=== PATIENT | female | born 1970 ===

== ENCOUNTER 2017-02-27 04:57 | Emergency (ER) | payer BC ==
[2017-02-27] MEDS ORDERED: Sodium Chloride 0.9% 1,000 ML IV ONE (05:09)
[2017-02-27] MEDS ORDERED: Ondansetron 4 MG/2 ML SDV IV ONE (05:10)
[2017-02-27] MEDS ORDERED: Morphine 2 MG/ML Syringe IVPUSH ONE ×2 (05:10→06:23)
--- NOTE | 2017-02-27 05:13 | EDM.PDOC ---
ED HPI GENERAL MEDICAL PROBLEM - General Chief Complaint: Flank Pain Stated Complaint: SIDE PAIN Time Seen by Provider: 02/27/17 05:11 Source of Information: Reports: Patient, Family History Limitations: Reports: No Limitations - History of Present Illness INITIAL COMMENTS - FREE TEXT/NARRATIVE: 7 days h/o right side -back pain. thought pulled muscle went to [facility] told wasn' t. not getting better. did eat tonight. now feels worse and concerned with appy. Right Flank Pain Score (Numeric/FACES): 8 - Related Data Allergies Allergy/AdvReac Type Severity Reaction Status Date / Time No Known Allergies Allergy Verified 02/27/17 05:03 Home Meds: Home Meds Acetaminophen [Tylenol] 650 mg PO Q6H PRN 02/27/17 [History] Ibuprofen [Advil] 600 mg PO Q6H PRN 02/27/17 [History] Naproxen Sodium [Aleve] 220 mg PO TID PRN 02/27/17 [History] Past Medical History - Past Health History Medical/Surgical History: Denies Medical/Surgical History Social & Family History - Tobacco Use Smoking Status *Q: Never Smoker Second Hand Smoke Exposure: No - Recreational Drug Use Recreational Drug Use: No ED ROS GENERAL - Review of Systems Review Of Systems: ROS reveals no pertinent complaints other than HPI. ED EXAM, GI/ABD - Physical Exam Exam: See Below Exam Limited By: No Limitations General Appearance: Alert, WD/WN, Mild Distress, Other (discomfort) Ears: Hearing Grossly Normal Throat/Mouth: Normal Voice, No Airway Compromise Head: Atraumatic Neck: Non-Tender, Full Range of Motion Respiratory/Chest: No Respiratory Distress Cardiovascular: Regular Rate, Rhythm GI/Abdominal Exam: Guarding, Tender, Other (right side, RLQ>). No: Distended, Rigid, Rebound Neurological: Alert, Oriented, Normal Cognition, Normal Gait, No Motor/Sensory Deficits Psychiatric: Tearful Skin Exam: Warm, Dry, Normal Color Lymphatic: No Adenopathy Course - Vital Signs Last Recorded V/S: Last Vital Signs Temp 36.6 C 02/27/17 05:00 Pulse 89 02/27/17 05:00 Resp 18 02/27/17 05:00 BP 154/71 H 02/27/17 05:00 Pulse Ox 99 02/27/17 05:00 - Orders/Labs/Meds Orders: Active Orders 24 hr Category Date Time Status Ketorolac [Toradol] Med 02/27/17 07:11 Once 15 mg IVPUSH ONETIME ONE Labs: Laboratory Tests 02/27/17 02/27/17 02/27/17 Range/Units 05:20 05:20 05:20 WBC 8.8 (5.0-10.0) 10^3/uL RBC 4.27 (4.2-5.4) 10^6/uL Hgb 13.1 (12.0-16.0) g/dL Hct 38.3 (37.0-47.0) % MCV 89.7 (80-100) fL MCH 30.7 (27.0-34.0) pg MCHC 34.2 (33.0-35.0) g/dL Plt Count 296 (150-450) 10^3/uL Neut % (Auto) 69.4 (42.2-75.2) % Lymph % (Auto) 22.1 (20.5-50.1) % [place] % (Auto) 7.3 (2-8) % Eos % (Auto) 1.0 (1.0-3.0) % Baso % (Auto) 0.2 (0.0-1.0) % Sodium 137 (135-145) mmol/L Potassium 3.5 L (3.6-5.0) mmol/L Chloride 105 (101-111) mmol/L Carbon Dioxide 22.0 (21.0-31.0) mmol/L Anion Gap 13.5 BUN 21 H (7-18) mg/dL Creatinine 0.6 (0.6-1.3) mg/dL Est Cr Clr Drug Dosing 99.02 mL/min Estimated GFR (MDRD) > 60 BUN/Creatinine Ratio 35.00 Glucose 93 (74-105) mg/dL Calcium 9.1 (8.4-10.2) mg/dl Total Bilirubin 0.5 (0.2-1.0) mg/dL AST 19 (10-42) IU/L ALT 14 (10-60) IU/L Alkaline Phosphatase 48 (42-121) IU/L Total Protein 7.2 (6.7-8.2) g/dl Albumin 4.0 (3.2-5.5) g/dl Globulin 3.2 Albumin/Globulin Ratio 1.25 Amylase 62 (28-100) U/L Lipase 37 (22-51) U/L HCG, Qual Negative Urine Color (YELLOW) Urine Appearance (CLEAR) Urine pH (5.0-9.0) Ur Specific [place] (1.005-1.030) Urine Protein (NEGATIVE) Urine Glucose (UA) (NEGATIVE) Urine Ketones (NEGATIVE) Urine Occult Blood (NEGATIVE) Urine Nitrite (NEGATIVE) Urine Bilirubin (NEGATIVE) Urine Urobilinogen (0.2-1.0) mg/dL Ur Leukocyte Esterase (NEGATIVE) Urine RBC /HPF Urine WBC (0-5/HPF) /HPF Ur Epithelial Cells /HPF Urine Bacteria (0-FEW/HPF) /HPF 02/27/17 Range/Units 05:55 WBC (5.0-10.0) 10^3/uL RBC (4.2-5.4) 10^6/uL Hgb (12.0-16.0) g/dL Hct (37.0-47.0) % MCV (80-100) fL MCH (27.0-34.0) pg MCHC (33.0-35.0) g/dL Plt Count (150-450) 10^3/uL Neut % (Auto) (42.2-75.2) % Lymph % (Auto) (20.5-50.1) % [place] % (Auto) (2-8) % Eos % (Auto) (1.0-3.0) % Baso % (Auto) (0.0-1.0) % Sodium (135-145) mmol/L Potassium (3.6-5.0) mmol/L Chloride (101-111) mmol/L Carbon Dioxide (21.0-31.0) mmol/L Anion Gap BUN (7-18) mg/dL Creatinine (0.6-1.3) mg/dL Est Cr Clr Drug Dosing mL/min Estimated GFR (MDRD) BUN/Creatinine Ratio Glucose (74-105) mg/dL Calcium (8.4-10.2) mg/dl Total Bilirubin (0.2-1.0) mg/dL AST (10-42) IU/L ALT (10-60) IU/L Alkaline Phosphatase (42-121) IU/L Total Protein (6.7-8.2) g/dl Albumin (3.2-5.5) g/dl Globulin Albumin/Globulin Ratio Amylase (28-100) U/L Lipase (22-51) U/L HCG, Qual Urine Color Light yellow (YELLOW) Urine Appearance Clear (CLEAR) Urine pH 5.5 (5.0-9.0) Ur Specific [place] <= 1.005 (1.005-1.030) Urine Protein Negative (NEGATIVE) Urine Glucose (UA) Negative (NEGATIVE) Urine Ketones Negative (NEGATIVE) Urine Occult Blood Negative (NEGATIVE) Urine Nitrite Negative (NEGATIVE) Urine Bilirubin Negative (NEGATIVE) Urine Urobilinogen 0.2 (0.2-1.0) mg/dL Ur Leukocyte Esterase Negative (NEGATIVE) Urine RBC 0-5 /HPF Urine WBC 0-5 (0-5/HPF) /HPF Ur Epithelial Cells Few /HPF Urine Bacteria Moderate H (0-FEW/HPF) /HPF Meds: Medications Discontinued Medications Generic Name Dose Route Start Last Admin Trade Name Freq PRN Reason Stop Dose Admin Sodium Chloride 1,000 mls @ 500 mls/hr 02/27/17 05:09 02/27/17 05:22 Normal Saline IV 02/27/17 07:08 500 mls/hr .BOLUS ONE Administration Iopamidol 75 ml 02/27/17 06:14 02/27/17 06:20 Isovue-300 (61%) IVPUSH 02/27/17 06:15 75 ml ONETIME ONE Administration Morphine Sulfate 2 mg 02/27/17 05:10 02/27/17 05:27 Morphine IVPUSH 02/27/17 05:11 2 mg ONETIME ONE Administration Morphine Sulfate 2 mg 02/27/17 06:23 02/27/17 06:28 Morphine IVPUSH 02/27/17 06:24 2 mg ONETIME ONE Administration Ondansetron HCl 4 mg 02/27/17 05:10 02/27/17 05:24 Zofran IV 02/27/17 05:11 4 mg ONETIME ONE Administration - Re-Assessments/Exams Free Text/Narrative Re-Assessment/Exam: 02/27/17 06:16 results discussed with pt & family, final decision is CAT. 02/27/17 07:12 results discussed with pt & family Departure - Departure Time of Disposition: 07:13 Disposition: Home, Self-Care 01 Condition: Good Clinical Impression: Lumbar radiculopathy - Discharge Information Forms: ED Department Discharge Additional Instructions: 1) see clinic for NEPHROLOGY REFERRAL for right kidney re-evaluation 2) rest and avoid bending lifting straining rx given; flexeril 10mg bid prn x 12 vicodin 5/325mg bid prn x12 - My Orders Last 24 Hours: My Active Orders 02/27/17 07:11 Ketorolac [Toradol] 15 mg IVPUSH ONETIME ONE - Assessment/Plan Last 24 Hours: My Active Orders 02/27/17 07:11 Ketorolac [Toradol] 15 mg IVPUSH ONETIME ONE
[2017-02-27 05:45] LABS: CHLORIDE,CL 105 mmol/L (101-111); SODIUM,NA 137 mmol/L (135-145)
[2017-02-27] MEDS ORDERED: Iopamidol 612 MG/ML 75 ML Bottle IVPUSH ONE (06:14)
[2017-02-27] MEDS ORDERED: Ketorolac 30 MG/ML SDV IVPUSH ONE (07:11)
== END 2017-02-27 07:35 | disposition home or self-care (01) ==
LOC: DL.ED 04:57
DX: M54.16 Radiculopathy, lumbar region (principal)
CPT/HCPCS: 36415; 74177; 80053; 81001; 82150; 83690; 84703; 85025; 96361; 96374; 96375; 96376; 99284; J1885; J2270; J2405; J7030; Q9967